=== PATIENT | female | born 1945 | race Caucasian/White ===

== ENCOUNTER 2019-04-12 16:25 | Emergency (ER) | payer MEDICARE, MEDICAID ==
[~2019-04-12] VITALS: Ht 152.4 cm; Wt 72.7 kg
[~2019-04-12 16:25] MED LIST: ARA20T PO; ATOR20TA PO; LISI-600 PO; PRED5TAB PO; SYN0.025T PO; ZOF4T PO
--- NOTE | 2019-04-12 16:50 | NUR ---
ambulated independently to bathroom w/ SBA. Unable to get urine sample, pt was not able to get the urine lid off cup. states she will try again soon.
[2019-04-12 17:18] LABS: BASOPHILS % (AUTO) 0.8 % (0-1); EOSINOPHILS # (AUTO) 0.1 X10'3 (0-0.9); EOSINOPHILS % (AUTO) 1.4 % (0-6); HEMATOCRIT 36.7 % (35.0-45.0); HEMOGLOBIN 12.3 g/dl (12.0-16.0); LYMPHOCYTES # (AUTO) 0.6 X10'3 (1.1-4.8); LYMPHOCYTES % (AUTO) 15.4 % (21-51); MEAN CORPUSCULAR HEMOGLOBIN 28.8 PG (27.0-31.0); MEAN CORPUSCULAR HGB CONC 33.5 g/dL (33.0-36.5); MEAN PLATELET VOLUME 7.8 FL (7.4-10.4); MONOCYTES # (AUTO) 0.3 X10'3 (0-0.9); MONOCYTES % (AUTO) 8.2 % (2-12); NEUTROPHILS # (AUTO) 2.7 X10'3 (1.8-7.7); NEUTROPHILS % (AUTO) 74.2 % (42-75); PLATELET COUNT 255 X10'3 (140-440); RED BLOOD COUNT 4.27 X10'6 (4.20-5.60); RED CELL DISTRIBUTION WIDTH 15.7 % (11.5-14.5); WHITE BLOOD COUNT 3.7 X10'3 (4.5-11.0)
[2019-04-12 17:28] LABS: ALANINE AMINOTRANSFERASE 14 U/L (12-78); ALBUMIN 3.3 G/DL (3.4-5.0); ALBUMIN/GLOBULIN RATIO 0.6 (1.1-1.5); ALKALINE PHOSPHATASE 75 IU/L (46-116); AMYLASE 26 U/L (25-115); ANION GAP 8 (8-16); ASPARTATE AMINO TRANSFERASE 17 U/L (10-37); BILIRUBIN,TOTAL 0.4 MG/DL (0.1-1.0); BLOOD UREA NITROGEN 14 MG/DL (7-18); BUN/CREATININE RATIO 17.9 (6.6-38.0); CALCIUM 9.1 MG/DL (8.5-10.1); CHLORIDE 100 MMOL/L (99-107); CREATININE 0.78 MG/DL (0.40-0.90); GLUCOSE 117 MG/DL (70-104); LIPASE 115 U/L (73-393); POTASSIUM 4.2 MMOL/L (3.5-5.1); SODIUM 134 MMOL/L (135-145); TOTAL CARBON DIOXIDE 26.5 MMOL/L (24-32); TOTAL PROTEIN 8.8 G/DL (6.4-8.2); eGFR 72 ML/MIN
[2019-04-12] MEDS ORDERED: ondansetron 4mg rapidly disintigrating tab PO ONE (18:45)
[2019-04-12] MEDS ORDERED: HYDROcodone/acetaminophen 10/325mg tab PO ONE (18:45)
[2019-04-12 18:47] LABS: CLARITY,URINE SLIGHTLY CLOUDY (Clear); COLOR,URINE YELLOW (Yellow); GLUCOSE, URINE NEGATIVE (Neg); KETONES,URINE 15 mg/dl (Neg); LEUKOCYTE ESTERASE ,URINE NEGATIVE (Neg); NITRITES, URINE NEGATIVE (Neg); OCCULT BLOOD,URINE LARGE (Neg); PH,URINE 7.5 (4.8-8.0); PROTEIN,URINE 100 mg/dl (Neg); UROBILINOGEN,URINE 0.2 E.U/dL (0.2-1.0)
[2019-04-12 18:53] LABS: BACTERIA,URINE FEW /HPF (Neg); RBC,URINE 50-100 /HPF (0-2); SQUAMOUS EPITHELIAL CELL,UR FEW /LPF (FEW); UA COLLECTION TYPE CLN CATCH MIDSTREAM; WBC,URINE 0-4 /HPF (0-4)
[2019-04-12] MEDS ORDERED: ketorolac trometh. 30mg/ml inj. IM ONE (20:00)
[2019-04-12 21:00] VITALS: BP 188/100
== END 2019-04-12 21:03 | disposition home or self-care (01) ==
LOC: ER 16:25
DX: N20.0 Calculus of kidney (principal); R31.9 Hematuria, unspecified; R10.11 Right upper quadrant pain; R10.12 Left upper quadrant pain; R11.10 Vomiting, unspecified; I10 Essential (primary) hypertension; J44.9 Chronic obstructive pulmonary disease, unspecified; M19.90 Unspecified osteoarthritis, unspecified site; F17.200 Nicotine dependence, unspecified, uncomplicated; Z79.899 Other long term (current) drug therapy; Z90.710 Acquired absence of both cervix and uterus
CPT/HCPCS: 36415; 74176; 80053; 81001; 82150; 83690; 85025; 85610; 96372; 99284; J1885

== ENCOUNTER 2019-08-11 05:34 | Day surgery (SDC) | payer MEDICARE, MEDICAID ==
[2019-08-04 15:41] LABS: BASOPHILS % (AUTO) 1.5 % (0-1); EOSINOPHILS # (AUTO) 0.2 X10'3 (0-0.9); EOSINOPHILS % (AUTO) 11.1 % (0-6); LYMPHOCYTES # (AUTO) 0.8 X10'3 (1.1-4.8); LYMPHOCYTES % (AUTO) 42.8 % (21-51); MEAN CORPUSCULAR HGB CONC 32.9 g/dL (33.0-36.5); MEAN CORPUSCULAR VOLUME 88.3 FL (78-98); MEAN PLATELET VOLUME 8.4 FL (7.4-10.4); MONOCYTES # (AUTO) 0.2 X10'3 (0-0.9); MONOCYTES % (AUTO) 13.2 % (2-12); NEUTROPHILS # (AUTO) 0.6 X10'3 (1.8-7.7); NEUTROPHILS % (AUTO) 31.4 % (42-75); PRE OP HEMATOCRIT 33.9 % (35.0-45.0); PRE OP HEMOGLOBIN 11.1 g/dL (12.0-16.0); PRE OP PLATELET COUNT 182 X10'3 (140-440); RED BLOOD COUNT 3.83 X10'6 (4.20-5.60); RED CELL DISTRIBUTION WIDTH 16.9 % (11.5-14.5)
[2019-08-04 16:02] LABS: ALBUMIN 3.1 G/DL (3.4-5.0); ALBUMIN/GLOBULIN RATIO 0.7 (1.1-1.5); ALKALINE PHOSPHATASE 76 IU/L (46-116); BLOOD UREA NITROGEN 10 MG/DL (7-18); BUN/CREATININE RATIO 12.5 (6.6-38.0); CALCIUM 8.5 MG/DL (8.5-10.1); CHLORIDE 107 MMOL/L (99-107); PRE OP ALT 29 U/L (30-65); PRE OP ANION GAP 6 (8-16); PRE OP AST 27 U/L (10-37); PRE OP BILIRUB, TOTAL 0.3 MG/DL (0.0-1.0); PRE OP GLUCOSE 91 MG/DL (70-104); PRE OP POTASSIUM 3.6 MMOL/L (3.4-5.1); PRE OP SODIUM 143 MMOL/L (135-145); TOTAL CARBON DIOXIDE 29.9 MMOL/L (24-32); TOTAL PROTEIN 7.7 G/DL (6.4-8.2); eGFR 70 ML/MIN
[2019-08-04 16:04] LABS: ANISOCYTOSIS 1+; PLATELET ESTIMATE NORMAL; TOTAL CELLS COUNTED 100
[~2019-08-11] VITALS: Ht 152.4 cm; Wt 69.6 kg
[2019-08-11] VITALS (7 sets, daily range): BP systolic 160–177; BP diastolic 90–107
[~2019-08-11 05:34] MED LIST changes: +DESI75TA4 PO; +HYDR-3972 PO; -PRED5TAB PO; -ZOF4T PO; +albuterol 2.5 MG/3 ML nebule NEB ONE; +cefazolin/dext.iso 2gm/100 ML IV ONE; +famotidine 20mg tablet PO ONE; +ringers solution, lacted 1,000 ML IV SCH
[2019-08-11] MEDS ORDERED: LIDOcaine 1% (10mg/ml) 2ml vial ONE (06:08)
[2019-08-11] MEDS ORDERED: BUPIVAcaine/PF 2.5mg/ml (0.25%) 10ml vial ONE (06:39)
[2019-08-11] MEDS ORDERED: LIDOcaine 0.5% (5mg/ml) 50ml vial ONE (08:00)
[2019-08-11] MEDS ORDERED: sevoflurane 250ml liquid IH ONE (08:20)
[2019-08-11] MEDS ORDERED: fentaNYL/PF 50MCG/1 ML 2ML syringe ONE ×2 (08:20→08:48)
[2019-08-11] MEDS ORDERED: LIDOcaine 2% (20mg/ml) 5ml vial ONE (08:49)
[2019-08-11] MEDS ORDERED: dexamethasone sod phosphate 4mg/ml inj. ONE (08:49)
[2019-08-11] MEDS ORDERED: propofol inj 20 ML IV ONE (08:49)
[2019-08-11] MEDS ORDERED: ringers solution, lacted 1,000 ML IV SCH (09:19)
[2019-08-11] MEDS ORDERED: morphine 4 MG/ML inj SYRINge IV PRN (09:20)
[2019-08-11] MEDS ORDERED: ondansetron/PF 4mg/2ml inj IV PRN (09:20)
[2019-08-11] MEDS ORDERED: HYDROmorphone inj. 0.5 MG/0.5 ML DISP.SYRIN IV PRN (09:20)
[2019-08-11] MEDS ORDERED: ondansetron/PF 4mg/2ml inj ONE (09:28)
[2019-08-11] MEDS ORDERED: labetalol 20mg/4ml (5mg/ml) syringe IV ONE (09:28)
--- NOTE | 2019-08-11 09:52 | NUR ---
Received from OR via , accompanied by Anesthesiologist DR CORTEZ and report given by Anesthesiolgist. AWAKENS TO VOICE. VITALS STABLE. DRESSING DI. ANTONIO PAIN. FINGERS WARM AND PINK.
[2019-08-11] MEDS ORDERED: hydrALAZINE 20mg/ml inj. IV ONE (10:15)
--- NOTE | 2019-08-11 10:52 | NUR ---
AWAKE AND ORIENTED. VITALS STABLE. DRESSING DI. ANTONIO PAIN. HOME WITH FAMILY AT THIS TIME.
== END 2019-08-11 10:52 | disposition home or self-care (01) ==
LOC: PAS 05:34
PROVIDERS: ATTEND Orthopaedic Surgery Hand Surgery
DX: M06.841 Other specified rheumatoid arthritis, right hand (principal); F17.210 Nicotine dependence, cigarettes, uncomplicated; J44.9 Chronic obstructive pulmonary disease, unspecified; I10 Essential (primary) hypertension; G89.29 Other chronic pain; E66.9 Obesity, unspecified; Z68.30 Body mass index [BMI] 30.0-30.9, adult; Z79.899 Other long term (current) drug therapy
CPT/HCPCS: 26531; 36415; 71046; 80053; 82948; 85025; 93005; J1100; J1170; J2001; J2405; J2704; J3010; J3490; J7120; L8630; A4215; A4618; A7000

== ENCOUNTER 2019-09-05 05:22 | Day surgery (SDC) | payer MEDICARE, MEDICAID ==
[2019-08-28 11:00] LABS: BASOPHILS % (AUTO) 1.2 % (0-1); EOSINOPHILS # (AUTO) 0.2 X10'3 (0-0.9); LYMPHOCYTES % (AUTO) 28.7 % (21-51); MEAN CORPUSCULAR HEMOGLOBIN 29.5 PG (27.0-31.0); MEAN CORPUSCULAR HGB CONC 33.1 g/dL (33.0-36.5); MEAN PLATELET VOLUME 7.7 FL (7.4-10.4); MONOCYTES # (AUTO) 0.4 X10'3 (0-0.9); MONOCYTES % (AUTO) 10.4 % (2-12); NEUTROPHILS # (AUTO) 1.8 X10'3 (1.8-7.7); NEUTROPHILS % (AUTO) 53.7 % (42-75); PRE OP HEMATOCRIT 38.3 % (35.0-45.0); PRE OP HEMOGLOBIN 12.7 g/dL (12.0-16.0); PRE OP PLATELET COUNT 247 X10'3 (140-440)
[2019-08-28 11:16] LABS: ALBUMIN 3.4 G/DL (3.4-5.0); ALBUMIN/GLOBULIN RATIO 0.7 (1.1-1.5); ALKALINE PHOSPHATASE 81 IU/L (46-116); BLOOD UREA NITROGEN 11 MG/DL (7-18); BUN/CREATININE RATIO 11.3 (6.6-38.0); CALCIUM 9.1 MG/DL (8.5-10.1); CHLORIDE 104 MMOL/L (99-107); CREATININE 0.97 MG/DL (0.40-0.90); PRE OP ALT 15 U/L (30-65); PRE OP ANION GAP 9 (8-16); PRE OP AST 15 U/L (10-37); PRE OP BILIRUB, TOTAL 0.3 MG/DL (0.0-1.0); PRE OP GLUCOSE 128 MG/DL (70-104); PRE OP POTASSIUM 4.5 MMOL/L (3.4-5.1); PRE OP SODIUM 141 MMOL/L (135-145); TOTAL PROTEIN 8.6 G/DL (6.4-8.2); eGFR 56 ML/MIN
[~2019-09-05] VITALS: Ht 152.4 cm; Wt 65.7 kg
[~2019-09-05 05:22] MED LIST changes: +ALBU18HF2 INH; +CELE-193 PO; +FLUT1BLS4 INH; -albuterol 2.5 MG/3 ML nebule NEB ONE; -cefazolin/dext.iso 2gm/100 ML IV ONE; -famotidine 20mg tablet PO ONE
[2019-09-05 05:30] VITALS: BP 164/105
[2019-09-05] MEDS ORDERED: cefazolin/dext.iso 2gm/100 ML IV ONE (05:30)
[2019-09-05] MEDS ORDERED: famotidine 20mg tablet PO ONE (05:30)
[2019-09-05] MEDS ORDERED: albuterol 2.5 MG/3 ML nebule NEB ONE (05:30)
[2019-09-05] MEDS ORDERED: LIDOcaine 1% (10mg/ml) 2ml vial ONE (05:41)
[2019-09-05] MEDS ORDERED: BUPIVAcaine/PF 2.5mg/ml (0.25%) 10ml vial ONE (06:46)
[2019-09-05] MEDS ORDERED: LIDOcaine 0.5% (5mg/ml) 50ml vial ONE (07:08)
[2019-09-05] MEDS ORDERED: midazolam 2 mg/2 ml injection ONE (07:11)
[2019-09-05] MEDS ORDERED: fentaNYL/PF 50MCG/1 ML 2ML syringe ONE (07:11)
[2019-09-05] MEDS ORDERED: propofol inj 20 ML IV ONE (07:32)
[2019-09-05] MEDS ORDERED: ringers solution, lacted 1,000 ML IV SCH (07:34)
[2019-09-05] MEDS ORDERED: proCHLORperazine 10 MG/2 ml inj IV PRN (07:35)
[2019-09-05] MEDS ORDERED: meperidine/PF 25mg/ml syringe IV PRN ×3 (07:35)
[2019-09-05] MEDS ORDERED: morphine 4 MG/ML inj SYRINge IV PRN ×2 (07:35)
[2019-09-05] MEDS ORDERED: ondansetron/PF 4mg/2ml inj IV PRN (07:35)
[2019-09-05 08:03] VITALS: BP 173/100
--- NOTE | 2019-09-05 08:03 | NUR ---
Received from OR via [facility] , accompanied by Anesthesiologist CLAUDETTE and report given by Anesthesiolgist. PATIENT WITH 20G PIV IN LEFT UE RUNNING LR AT 100 PATIENT WITH SPLINT TO RIGHT HAND AND WRIST. DRESSING IS CDI. + CAP REFILL AND SLIGHT MOVEMENT OF FINGERS ON RIGHT. 3L NASAL CANNULA 100% SATURATIONS. DENIES PAIN. Addendum: 09/05/19 at 0812 by Zuhair Lou RN, RN Amended: Links added.
[2019-09-05 08:09] VITALS: BP 173/100
[2019-09-05 08:19] VITALS: BP 172/98
[2019-09-05 08:29] VITALS: BP 170/98
--- NOTE | 2019-09-05 08:49 | NUR ---
ALL DC CRITERIA HAS BEEN MET. IV TAKEN OUT WITHOUT COMPLICATIONS. ALL INSTRUCTIONS COVERED AND ALL QUESTIONS ANSWERED. DRESSINGS CDI. OUT VIA WHEELCHAIR TO PERSONAL VEHICLE WHERE PATIENT WAS SECURED IN AND DRIVEN HOME BY FAMILY. Addendum: 09/05/19 at 0850 by Zuhair Lou RN, RN Amended: Links added.
== END 2019-09-05 08:43 | disposition home or self-care (01) ==
LOC: PAS 05:22
PROVIDERS: ATTEND Orthopaedic Surgery Hand Surgery
DX: T84.098A Other mechanical complication of other internal joint prosthesis, initial encounter (principal); J44.9 Chronic obstructive pulmonary disease, unspecified; E78.00 Pure hypercholesterolemia, unspecified; I10 Essential (primary) hypertension; E03.9 Hypothyroidism, unspecified; M06.9 Rheumatoid arthritis, unspecified; F17.210 Nicotine dependence, cigarettes, uncomplicated; G89.29 Other chronic pain; Z98.890 Other specified postprocedural states; Z90.710 Acquired absence of both cervix and uterus; Y83.8 Other surgical procedures as the cause of abnormal reaction of the patient, or of later complication, without mention of misadventure at the time of the procedure; Y92.89 Other specified places as the place of occurrence of the external cause; Z79.899 Other long term (current) drug therapy
CPT/HCPCS: 26989; 36415; 80053; 85025; J2001; J2175; J2250; J2704; J3010; J3490; L8630; A4215; J7120

== ENCOUNTER 2022-12-07 12:41 | Emergency (ER) | payer MEDICARE, MEDICAID ==
[~2022-12-07] VITALS: Ht 144.8 cm; Wt 56.0 kg
[~2022-12-07 12:41] MED LIST changes: -LISI-600 PO; +LISI20TA28 PO; -ringers solution, lacted 1,000 ML IV SCH
[2022-12-07 18:18] LABS: BASOPHILS % (AUTO) 1.4 % (0-1); EOSINOPHILS % (AUTO) 0.4 % (0-6); HEMATOCRIT 37.9 % (35.0-45.0); HEMOGLOBIN 12.3 g/dl (12.0-16.0); LYMPHOCYTES # (AUTO) 0.6 X10'3 (1.1-4.8); LYMPHOCYTES % (AUTO) 24.7 % (21-51); MEAN CORPUSCULAR HGB CONC 32.4 g/dL (33.0-36.5); MEAN CORPUSCULAR VOLUME 83.3 FL (78-98); MEAN PLATELET VOLUME 6.9 FL (7.4-10.4); MONOCYTES # (AUTO) 0.5 X10'3 (0-0.9); NEUTROPHILS # (AUTO) 1.4 X10'3 (1.8-7.7); NEUTROPHILS % (AUTO) 52.5 % (42-75); PLATELET COUNT 254 X10'3 (140-440); RED BLOOD COUNT 4.55 X10'6 (4.20-5.60); RED CELL DISTRIBUTION WIDTH 16.9 % (11.5-14.5); WHITE BLOOD COUNT 2.6 X10'3 (4.5-11.0)
[2022-12-07 18:24] LABS: ALANINE AMINOTRANSFERASE 12 U/L (12-78); ALBUMIN 3.8 G/DL (3.4-5.0); ALBUMIN/GLOBULIN RATIO 0.7 (1.1-1.5); ALKALINE PHOSPHATASE 67 IU/L (46-116); ANION GAP 10 (8-16); ASPARTATE AMINO TRANSFERASE 15 U/L (10-37); BILIRUBIN,TOTAL 0.5 MG/DL (0.1-1.0); BLOOD UREA NITROGEN 33 MG/DL (7-18); BUN/CREATININE RATIO 30.8 (6.6-38.0); CALCIUM 9.4 MG/DL (8.5-10.1); CHLORIDE 105 MMOL/L (99-107); CREATININE 1.07 MG/DL (0.40-0.90); POTASSIUM 3.4 MMOL/L (3.5-5.1); SODIUM 143 MMOL/L (135-145); TOTAL CARBON DIOXIDE 28.1 MMOL/L (24-32); TOTAL PROTEIN 9.4 G/DL (6.4-8.2); eGFR 50 ML/MIN
[2022-12-07 18:30] LABS: GLUCOSE 128 MG/DL (70-104)
[2022-12-07] MEDS ORDERED: normal saline 1000ML IV soln IVB ONE (18:45)
[2022-12-07] MEDS ORDERED: ondansetron/PF 4mg/2ml inj IV ONE (18:45)
[2022-12-07] MEDS ORDERED: nitroGLYCERIN 0.4mg SUBLingual tab SL PRN (18:45)
[2022-12-07] MEDS ORDERED: glucagon, human recombinant 1mg kit IM ONE (18:45)
[2022-12-07 19:02] LABS: ANISOCYTOSIS 1+; PLATELET ESTIMATE NORMAL; TOTAL CELLS COUNTED 100
[2022-12-07 21:15] VITALS: BP 166/95
== END 2022-12-07 21:19 | disposition home or self-care (01) ==
LOC: ER 12:42
DX: T14.8XXA Other injury of unspecified body region, initial encounter (principal); I13.0 Hypertensive heart and chronic kidney disease with heart failure and stage 1 through stage 4 chronic kidney disease, or unspecified chronic kidney disease; N18.9 Chronic kidney disease, unspecified; R10.10 Upper abdominal pain, unspecified; J44.9 Chronic obstructive pulmonary disease, unspecified; Z90.710 Acquired absence of both cervix and uterus; Z79.899 Other long term (current) drug therapy; X58.XXXA Exposure to other specified factors, initial encounter; Y93.89 Activity, other specified; Y92.89 Other specified places as the place of occurrence of the external cause; Y99.8 Other external cause status
CPT/HCPCS: 36415; 80053; 84145; 85007; 85025; 96361; 96372; 96374; 99285; J1610; J2405; J7030